=== PATIENT | female | born 1940 | race Caucasian/White ===

== ENCOUNTER 2023-08-10 07:50 | Outpatient (CLI) | payer OTHER | END 2023-08-10 07:54 | disposition home or self-care (01) | LOC: TOM 07:50 | PROVIDERS: ATTEND Internal Medicine Gastroenterology | DX: K59.09 Other constipation (principal); R19.7 Diarrhea, unspecified; K62.5 Hemorrhage of anus and rectum; Z80.0 Family history of malignant neoplasm of digestive organs; R63.4 Abnormal weight loss ==

== ENCOUNTER 2023-09-02 08:15 | Outpatient (CLI) | payer OTHER | END 2023-09-02 08:19 | disposition home or self-care (01) | LOC: RX STUDY 08:15 | PROVIDERS: ATTEND Internal Medicine Gastroenterology | DX: K59.09 Other constipation (principal); R19.7 Diarrhea, unspecified; K62.5 Hemorrhage of anus and rectum; Z80.0 Family history of malignant neoplasm of digestive organs; R63.4 Abnormal weight loss ==